=== PATIENT | female | born 1975 | race Caucasian/White ===

== ENCOUNTER 2016-07-18 14:11 | Emergency (ER) | payer BC ==
[~2016-07-18] VITALS: Ht 162.6 cm; Wt 86.2 kg
[~2016-07-18 14:11] MED LIST: ACHYD1T PO; AMIT50TA3 PO; BUTA-234 PO; CPR500T PO; DCS100C PO; ESTR1TAB24 PO; HYDR1TAB PO; IBP800T PO; NAPR550T PO; RIZA5TAB13 PO; TRAM-21 PO
[2016-07-18] MEDS ORDERED: SUMA100T3 (14:30)
[2016-07-18] MEDS ORDERED: NS IV 1000 ML 1,000 ML IV ONE (14:32)
[2016-07-18] MEDS ORDERED: KETOROLAC 30 MG/ML VIAL IVP STA (14:32)
[2016-07-18] MEDS ORDERED: ONDANSETRON 4 MG/2 ML (SDV) Z0FRAN IVP ONE (14:45)
[2016-07-18] MEDS ORDERED: diphenhydrAMINE 50 MG/ML INJ (BENADRYL) IVP ONE (14:45)
[2016-07-18] MEDS ORDERED: ORPHENADRINE 60 MG/2 ML (NORFLEX) AMP IV STA (15:10)
--- NOTE | 2016-07-18 15:29 | ED Headache ---
General Chief Complaint: Head/Cervical Problems Stated Complaint: MIGRANE Nursing Triage Note: AMB TO ED PMH OF HEADACHE TOOK PROMETHAZINE AND IMITREX TODAY. CON'T TO HAVE HEADACHE WITH ONSET OF VOMITING. Nursing Sepsis Screen: No Definite Risk Source: patient Exam Limitations: no limitations History of Present Illness Time seen by provider: 14:55 Initial Comments 41-year-old female patient presents to the emergency department complains of headache. Patient states she tried taking Imitrex and promethazine at home without improvement. Patient has a history of migraines and states this feels exactly like usual migraines. Does complain of photophobia and sound sensitivity. Patient states she was working in the garden yesterday and now has neck pain. Pain radiates up the neck and scalp. Timing/Duration: 4-6 hours Severity/Quality: throbbing Location: frontal Prior Headaches/Recent Trauma: occasional headaches Modifying Factors: worse with exposure to light, worse with other (exposure to sound) Allergies and Home Medications Allergies Coded Allergies: phenazopyridine (Verified Adverse Reaction, Unknown, headache and nausea, 07/18/16) Uncoded Allergies: STEVEN ALVARADO GIVES MIGRAINES (Allergy, Unknown, 06/04/09) Home Medications Amitriptyline Hcl 50 Mg Tablet, 1 EACH PO HS, (Reported) Estradiol 1 Mg Tablet, 1 MG PO DAILY, #90 Ref 3 (Reported) Ondansetron 8 Mg Tab.rapdis, 8 MG PO Q6H PRN for NAUSEA/VOMITING-1ST LINE, #10 Ref 0 Prescribed by: JACKY MARTINI on 07/18/16 1533 Rizatriptan Benzoate 5 Mg Tablet, 0 PO UD, (Reported) 1 TAB AT ONSET OF HEADACHE; repeat after 2 hours if significant relief is not attained; maximum: 30 mg in a 24-hour period Sumatriptan Succinate 100 Mg Tablet, #9 (Reported) Constitutional: No chills, No diaphoresis, No dizziness, No fever, No malaise, No weakness Eyes: Denies Blurred Vision, Photophobia, Denies Vision Changes Ears, Nose, Mouth, Throat: no symptoms reported Respiratory: no symptoms reported Cardiovascular: no symptoms reported Gastrointestinal: No abdominal pain, No diarrhea, loss of appetite, nausea, vomiting Genitourinary: no symptoms reported Musculoskeletal: see HPI, neck pain Skin: no symptoms reported Psychiatric/Neurological: See HPI, Headache, Denies Numbness, Denies Paresthesia, Denies Seizure, Denies Tingling, Denies Weakness All Other Systems Reviewed Negative Unless Noted: Yes (Negative excepted noted.) Past Zsvtfby-Umfngq-Joicsk Hx Patient Social History Alcohol Use: Denies Use Recreational Drug Use: No Smoking Status: Never a Smoker Recent Foreign Travel: No Contact w/Someone Who Travel: No Recent Infectious Disease Expo: No Recent Hopitalizations: Yes Immunizations Up To Date Date of Influenza Vaccine: May 03, 2012 Surgeries HX Surgeries: Yes Surgeries: Hysterectomy Respiratory Hx Respiratory Disorders: No Cardiovascular Hx Cardiac Disorders: No Neurological Hx Neurological Disorders: Yes Neurological Disorders: Headaches /Migraines Reproductive System Hx Reproductive Disorders: Yes (ENDOMETRIOSIS?) Sexually 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 Disease: 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 Genitourinary Hx Genitourinary Disorders: No Gastrointestinal Hx Gastrointestinal Disorders: No Musculoskeletal Hx Musculoskeletal Disorders: No Endocrine Hx Endocrine Disorders: No HEENT HX ENT Disorders: No Psychosocial Hx Psychiatric Problems: No Blood Transfusions Hx Blood Disorders: Yes Reviewed Nursing Assessment Reviewed/Agree w Nursing PMH: Yes Family Medical History Significant Family History: No Pertinent Family Hx Physical Exam Vital Signs Vital Sign - Last 12Hours 07/18/16 14:15 Temp 97.4 Pulse 81 Resp 18 B/P (MAP) 140/102 Pulse Ox 98 O2 Delivery Room Air Capillary Refill : Less Than 3 Seconds General Appearance: WD/WN, no apparent distress HEENT: PERRL/EOMI, normal ENT inspection, TMs normal, pharynx normal, photophobia Neck: full range of motion, supple, normal inspection, tender lateral (base of the skull) Cardiovascular: normal peripheral pulses, regular rate, rhythm, no edema, no murmur Respiratory: lungs clear, normal breath sounds, no respiratory distress Gastrointestinal: normal bowel sounds, non tender, soft, No distended Back: normal inspection Extremities: normal inspection, no pedal edema, normal capillary refill Psychiatric: alert, oriented x 3 Crainal Nerves: normal hearing, normal speech, PERRL Coordination/Gait: normal finger to nose, normal gait, negative Romberg's sign Motor/Sensory: no motor deficit, no sensory deficit, no pronator drift Skin: normal color, warm/dry Progress/Results/Core Measures Results/Orders My Orders Orders - JACKY MARTINI Saline Lock/Iv-Start (4/8/17 14:32) Ns Iv 1000 Ml (Sodium Chloride 0.9%) (07/18/16 14:32) Ondansetron Injection (Zofran Injectio (07/18/16 14:45) Ketorolac Injection (Toradol Injection) (07/18/16 14:32) Diphenhydramine Injection (Benadryl Inje (07/18/16 14:45) Orphenadrine Injection (Norflex Injectio (07/18/16 15:10) Medications Given in ED Vital Signs/I&O Vital Sign - Last 12Hours 07/18/16 07/18/16 14:15 16:09 Temp 97.4 97.8 Pulse 81 78 Resp 18 18 B/P (MAP) 140/102 Pulse Ox 98 98 O2 Delivery Room Air Intake and Output 07/19/16 00:00 Intake Total 1000 ml Balance 1000 ml Blood Pressure Mean: 115 Departure Communication Progress Notes Patient reports on his complete resolution of symptoms with medications and fluids given in the emergency department. Plan for discharge to home. Patient instructed to continue her usual migraine medications if needed and to follow- up with her primary care physician for recheck. Impression Impression: Primary Impression: Migraine Disposition: HOME, SELF-CARE Condition: Improved Departure-Patient Inst. Decision time for Depature: 15:30 Referrals: DELON SIMON MD (PCP/Family) Primary Care Physician Patient Instructions: Migraine Headache (DC) Add. Discharge Instructions: All discharge instructions reviewed with patient and/or family. Voiced understanding. Continue usual home medications. Tylenol extra strength over- the-counter as directed for pain. Ibuprofen 800 mg by mouth every 8 hours as needed for pain. Drink plenty of fluids. Avoid bright lights, loud noises, and strenuous activities until symptoms improve. Follow-up with your family practitioner if no improvement in symptoms. Return to the emergency department for worsened headache, dizziness, changes in vision, changes in behavior, vomiting, decreased urination, or any other concerns. Scripts Ondansetron (Ondansetron Odt) 8 Mg Tab.rapdis 8 MG PO Q6H Y for NAUSEA/VOMITING-1ST LINE, #10 TAB 0 Refills Prov: JACKY MARTINI 07/18/16 JACKY MARTINI Jul 18, 2016 15:29
[2016-07-18] MEDS ORDERED: ONDA8TAB13 PO (15:33)
[2016-07-18 16:09] VITALS: BP 151/102
--- OUTSIDE RECORDS SUMMARY | 2016-08-23 04:52 | XMS REPORT | Continuity of Care Document ---
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 N/A 10/05/2008 Yes No Known Drug Allergies [id number] Drug Allergy Unknown N/ A 06/04/2009 Yes STEVEN BCP GIVES MIGRAINES STEVEN BCP GIVES MIGRAINES Unknown N/A 06/04/2009 Yes MUSCLE RELAXERS MUSCLE RELAXERS Mild MAKES HEADACHE 07/18/2016 Yes phenazopyridine [id number] Drug Allergy Unknown headache and na 07/18/2016 Medications Problems Date Dx Coded Attending Type Code Diagnosis Diagnosed By 06/19/2013 JESSA SHELDON, VERO Caro Ot 346.90 MIGRAINE UNSPECIFIED W/O INTRACT MGRN W/ 06/19/2013 VERO GERMAIN MD Ot 784.0 HEADACHE 01/03/2015 MERCY ABDI MD Ot V76.12 01/16/2015 MERCY ABDI MD Ot V76.12 08/30/2015 DELON SIMON MD Ot K42.9 UMBILICAL HERNIA WITHOUT OBSTRUCTION OR 08/30/2015 DELON SIMON MD Ot N39.41 URGE INCONTINENCE 08/30/2015 DELON SIMON MD Ot R10.32 LEFT LOWER QUADRANT PAIN 08/30/2015 DELON SIMON MD Ot R31.9 HEMATURIA, UNSPECIFIED 09/02/2015 MERCY ABDI MD Ot V76.12 OTH SCREEN MAMMO-MALIGN NEOPLASM OF ERINN 09/02/2015 MERCY ABDI MD Ot V76.12 OTH SCREEN MAMMO-MALIGN NEOPLASM OF ERINN 09/02/2015 DELON SIMON MD Ot K42.9 UMBILICAL HERNIA WITHOUT OBSTRUCTION OR 09/02/2015 DELON SIMON MD Ot N39.41 URGE INCONTINENCE 09/02/2015 DELON SIMON MD Ot R10.32 LEFT LOWER QUADRANT PAIN 09/02/2015 DELON SIMON MD Ot R31.9 HEMATURIA, UNSPECIFIED 09/16/2015 DELON SIMON MD Ot K42.9 UMBILICAL HERNIA WITHOUT OBSTRUCTION OR 09/16/2015 DELON SIMON MD Ot N39.41 URGE INCONTINENCE 09/16/2015 DELON SIMON MD Ot R10.32 LEFT LOWER QUADRANT PAIN 09/16/2015 DELON SIMON MD Ot R31.9 HEMATURIA, UNSPECIFIED 07/18/2016 JACKY ACEVES Ot G43.909 MIGRAINE, UNSP, NOT INTRACTABLE, WITHOUT 07/18/2016 JACKY ACEVES Ot M54.2 CERVICALGIA 07/18/2016 JACKY ACEVES Ot Z79.899 OTHER LONGTERM (CURRENT) DRUG THERAPY 07/18/2016 MERCY ABDI MD Ot V76.12 OTH SCREEN MAMMO-MALIGN NEOPLASM OF ERINN 07/18/2016 MERCY ABDI MD Ot V76.12 OTH SCREEN MAMMO-MALIGN NEOPLASM OF ERINN 07/18/2016 DELON SIMON MD, Ot K42.9 UMBILICAL HERNIA WITHOUT OBSTRUCTION OR 07/18/2016 DELON SIMON MD Ot N39.41 URGE INCONTINENCE 07/18/2016 DELON SIMON MD Ot R10.32 LEFT LOWER QUADRANT PAIN 07/18/2016 DELON SIMON MD Ot R31.9 HEMATURIA, UNSPECIFIED Procedures Results Encounters ACCT No. Visit Date/Time Discharge Status Pt. Type Provider Facility Loc./Unit Complaint [id number] 07/18/2016 14:12:00 2016 16:09:00 DIS Emergency JACKY ACEVES [facility] ER MIGRAINE [id number] 01/03/2015 12:28:00 2014 23:59:59 CLS Outpatient MERCY ABDI MD [facility] RAD SCREENING [id number] 06/19/2013 15:48:00 2013 16:51:00 DIS Emergency JESSA SHELDON, VERO Martinez [facility] ER HEADACHE [id number] 06/08/2013 14:51:00 2013 23:59:59 CLS Outpatient TRINIDAD SHELDON, MERCY Hyman [facility] RAD SCREENING [id number] 08/29/2015 11:19:00 ACT Outpatient AURORA SHELDON, DELON Welch [facility] RAD HEMATURIA,L FLANK PAIN,URINARY URGENCY
== END 2016-07-18 16:09 | disposition home or self-care (01) ==
LOC: EDUNIT# 14:11 → ER 14:12
DX: G43.909 Migraine, unspecified, not intractable, without status migrainosus (principal); M54.2 Cervicalgia; Z79.899 Other long term (current) drug therapy
CPT/HCPCS: 96361; 96374; 96375

== ENCOUNTER 2018-04-23 17:05 | Emergency (ER) | payer BC, MEDICAID ==
[~2018-04-23] VITALS: Ht 160 cm; Wt 90.7 kg
[~2018-04-23 17:05] MED LIST changes: +ONDA8TAB13 PO; +SUMA100T3
--- NOTE | 2018-04-23 17:25 | ED Headache ---
General Chief Complaint: Head/Cervical Problems Stated Complaint: MIGRAINE,VOMIT Source: patient Exam Limitations: no limitations History of Present Illness Date Seen by Provider: Apr 23, 2018 Time Seen by Provider: 17:22 Initial Comments 43-year-old female who presents to the emergency room with complaints of migraine, nausea, and vomiting started around 0300 this morning. Reports getting migraines frequently but this migraine will not go away with home remedies and ddkb-ntp-krofqvz medications. Severity/Quality: constant, pressure Location: global Prior Headaches/Recent Trauma: frequent headaches Associated Symptoms: nausea/vomiting Allergies and Home Medications Allergies Coded Allergies: phenazopyridine (Verified Adverse Reaction, Unknown, headache and nausea, 07/18/16) Uncoded Allergies: STEVEN BCP GIVES MIGRAINES (Allergy, Unknown, 06/04/09) Home Medications Amitriptyline Hcl 50 Mg Tablet, 1 EACH PO HS, (Reported) Estradiol 1 Mg Tablet, 1 MG PO DAILY, (Reported) Ondansetron 8 Mg Tab.rapdis, 8 MG PO Q6H PRN for NAUSEA/VOMITING-1ST LINE Prescribed by: JACKY MARTINI on 07/18/16 1533 Rizatriptan Benzoate 5 Mg Tablet, 0 PO UD, (Reported) 1 TAB AT ONSET OF HEADACHE; repeat after 2 hours if significant relief is not attained; maximum: 30 mg in a 24-hour period Patient Home Medication List Home Medication List Reviewed: Yes Review of Systems Review of Systems Constitutional: no symptoms reported, see HPI Gastrointestinal: see HPI, nausea, vomiting Psychiatric/Neurological: See HPI, Headache All Other Systems Reviewed Negative Unless Noted: Yes Past Erdqxen-Lxvyhs-Lnioqw Hx Past Med/Social Hx: Reviewed Nursing Past Med/Soc Hx Patient Social History Recent Foreign Travel: No Contact w/Someone Who Travel: No Recent Hopitalizations: Yes Immunizations Up To Date Date of Influenza Vaccine: May 03, 2012 Past Medical History Hysterectomy Headaches /Migraines Reproductive Disorders: Yes (ENDOMETRIOSIS?) [employer]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 oz. 86.034713fs; BMI Method:Stated General Appearance: WD/WN, no apparent distress HEENT: PERRL/EOMI, photophobia Cardiovascular: normal peripheral pulses, regular rate, rhythm, no edema, no gallop, no JVD, no murmur Respiratory: chest non-tender, lungs clear, normal breath sounds, no respiratory distress, no accessory muscle use Gastrointestinal: normal bowel sounds, non tender, soft, no organomegaly, no pulsatile mass Extremities: normal capillary refill Psychiatric: alert, oriented x 3 Crainal Nerves: normal hearing, normal speech, PERRL Coordination/Gait: normal finger to nose, normal gait Motor/Sensory: no motor deficit, no sensory deficit Skin: normal color, warm/dry Progress/Results/Core Measures Results/Orders My Orders Orders - CLAU SEGOVIA Ketorolac Injection (Toradol Injection) (04/23/18 17:30) Prochlorperazine Injection (Compazine In (04/23/18 17:30) Diphenhydramine Injection (Benadryl Inje (04/23/18 17:30) Medications Given in ED Current Medications Medications Dose Ordered Sig/[place] Route Start Time Stop Time Status Last Admin Dose Admin Diphenhydramine HCl 50 mg ONCE ONCE IM 04/23/18 17:30 04/23/18 17:31 DC 04/23/18 17:32 50 MG Ketorolac Tromethamine 60 mg ONCE ONCE IM 04/23/18 17:30 04/23/18 17:31 DC 04/23/18 17:32 60 MG Prochlorperazine Edisylate 10 mg ONCE ONCE IM 04/23/18 17:30 04/23/18 17:31 DC 04/23/18 17:33 10 MG Vital Signs/I&O 04/23/18 17:17 Temp 97.2 Pulse 87 Resp 16 B/P (MAP) 153/112 (126) Pulse Ox 96 Progress Progress Note : Time: 17:57 Progress Note Patients tendons have resolved this time. She agrees with plan of care, plans for discharge, return precautions were given. Departure Impression Primary Impression: Migraine Disposition: 01 HOME, SELF-CARE Condition: Stable/Unchanged Departure-Patient Inst. Decision time for Depature: 17:57 Referrals: DELON SIMON MD (PCP/Family) Primary Care Physician Patient Instructions: Migraine Headache (DC) Add. Discharge Instructions: You may continue to use Tylenol, ibuprofen, and Benadryl as directed by the bottle for symptom relief. Follow-up with your primary care provider within 1 week for recheck. Return back to the emergency room for any worsening symptoms or concerns as needed. All discharge instructions reviewed with patient and/or family. Voiced understanding. CLAU SEGOVIA Apr 23, 2018 17:25
[2018-04-23] MEDS ORDERED: KETOROLAC 60 MG/2 ML VIAL IM ONE (17:30)
[2018-04-23] MEDS ORDERED: PROCHLORPERAZINE 10 MG/2ML INJ (COMPAZINE) IM ONE (17:30)
[2018-04-23] MEDS ORDERED: diphenhydrAMINE 50 MG/ML INJ (BENADRYL) IM ONE (17:30)
[2018-04-23 18:04] VITALS: BP 142/92
--- OUTSIDE RECORDS SUMMARY | 2018-04-23 18:17 | XMS REPORT | Continuity of Care Document ---
Author Author [facility] Organization [facility] Address Unknown Phone Unavailable Allergies Active Description Code Type Severity Reaction Onset Reported/Identified Relationship to Patient Clinical Status Yes MUSCLE RELAXERS MUSCLE RELAXERS Mild N/A 10/05/2008 Yes No Known Drug Allergies [id number] Drug Allergy Unknown N/A 06/04/2009 Yes STEVEN BCP GIVES MIGRAINES STEVEN BCP GIVES MIGRAINES Unknown N/A 06/04/2009 Yes MUSCLE RELAXERS MUSCLE RELAXERS Mild MAKES HEADACHE 07/18/2016 Yes phenazopyridine [id number] Drug Allergy Unknown headache and na 07/18/2016 Medications There is no data. Problems Date Dx Coded Attending Type Code Diagnosis Diagnosed By 06/19/2013 JESSA SHELDON, VERO Caro Ot 346.90 MIGRAINE UNSPECIFIED W/O INTRACT MGRN W/ 06/19/2013 VERO GERMAIN MD Ot 784.0 HEADACHE 01/03/2015 MERCY ABDI MD, Ot V76.12 01/16/2015 MERCY ABDI MD, Ot V76.12 08/30/2015 DELON SIMON MD Ot [...] CERVICALGIA 07/18/2016 JACKY ACEVES Ot Z79.899 OTHER USP (CURRENT) DRUG THERAPY 07/18/2016 MERCY ABDI MD Ot V76.12 OTH SCREEN MAMMO-MALIGN NEOPLASM OF ERINN 07/18/2016 MERCY ABDI MD Ot V76.12 OTH SCREEN MAMMO-MALIGN NEOPLASM OF ERINN 07/18/2016 DELON SIMON MD, Ot K42.9 UMBILICAL HERNIA WITHOUT OBSTRUCTION OR 07/18/2016 DELON SIMON MD Ot N39.41 URGE INCONTINENCE 07/18/2016 DELON SIMON MD, Ot R10.32 LEFT LOWER QUADRANT PAIN 07/18/2016 DELON SIMON MD, Ot R31.9 HEMATURIA, UNSPECIFIED Procedures There is no data. Results There is no data. Encounters ACCT No. Visit Date/Time Discharge Status Pt. Type Provider Facility Loc./Unit Complaint [id number] 07/18/2016 14:12:00 07/18/2016 16:09:00 DIS Emergency JACKY ACEVES [facility] ER MIGRAINE [id number] 08/29/2015 11:19:00 08/29/2015 23:59:59 CLS Outpatient DELON SIMON MD [facility] RAD HEMATURIA,L FLANK PAIN, URINARY URGENCY [id number] 01/03/2015 12:28:00 01/03/2015 23:59:59 CLS Outpatient MERCY ABDI MD [facility] RAD SCREENING [id number] 06/19/2013 15:48:00 06/19/2013 16:51:00 DIS Emergency JESSA SHELDON, VERO Caro [facility] ER HEADACHE [id number] 06/08/2013 14:51:00 06/08/2013 23:59:59 CLS Outpatient MERCY ABDI MD [facility] RAD SCREENING
== END 2018-04-23 18:04 | disposition home or self-care (01) ==
LOC: EDUNIT# 17:05 → ER 17:06
DX: G43.909 Migraine, unspecified, not intractable, without status migrainosus (principal); Z88.8 Allergy status to other drugs, medicaments and biological substances; Z90.710 Acquired absence of both cervix and uterus; Z87.448 Personal history of other diseases of urinary system
CPT/HCPCS: 99284

== ENCOUNTER 2019-03-15 11:43 | Emergency (ER) | payer MEDICAID ==
[~2019-03-15] VITALS: Ht 167 cm; Wt 90.0 kg
--- NOTE | 2019-03-15 12:22 | ED Headache ---
General Chief Complaint: Head/Cervical Problems Stated Complaint: MIGRAINE Nursing Triage Note: AMB TO ROOM C/O HEDACHE SINCE LAST NIGHT REPORT THAT HER BROTHER WAS FOUND IN HIS APPARTMENT THAT SHE HAD TO GO AND CLEAN IT OUT THINKS THEIR MAY OF BEEN MOLD THAT SET HER MIRGAIN OFF. Nursing Sepsis Screen: No Definite Risk Source: patient Exam Limitations: no limitations History of Present Illness Date Seen by Provider: Mar 15, 2019 Time Seen by Provider: 12:20 Initial Comments to ER with reports of a headache in the front and back since yesterday associated with photophobia and nausea vomiting. She has a history of migraines and this is similar. She took an gjuv-jmr-bntntov equate migraine pill but vomited shortly thereafter this morning. She states that her brother recently and she's been cleaning out his apartment, thought she saw black mold in there and is concerned that may be contributing to this. No fever no chills no trauma. Timing/Duration: 24 hours Severity/Quality: moderate Location: frontal, occipital Prior Headaches/Recent Trauma: occasional headaches Associated Symptoms: No confusion, No fever/chills; nausea/vomiting; No stiff neck, No vision changes Allergies and Home Medications Allergies Coded Allergies: phenazopyridine (Verified Adverse Reaction, Unknown, headache and nausea, 07/18/16) Uncoded Allergies: STEVEN BCP GIVES MIGRAINES (Allergy, Unknown, 06/04/09) MUSCLE REXLANT (Adverse Reaction, Unknown, GIVES HER A HEADACEH, 03/15/19) Home Medications Amitriptyline Hcl 50 Mg Tablet, 1 EACH PO HS, (Reported) Estradiol 1 Mg Tablet, 1 MG PO DAILY, (Reported) Ondansetron 8 Mg Tab.rapdis, 8 MG PO Q6H PRN for NAUSEA/VOMITING-1ST LINE Prescribed by: JACKY MARTINI on 07/18/16 1533 Rizatriptan Benzoate 5 Mg Tablet, 0 PO UD, (Reported) 1 TAB AT ONSET OF HEADACHE; repeat after 2 hours if significant relief is not attained; maximum: 30 mg in a 24-hour period Patient Home Medication List Home Medication List Reviewed: Yes Review of Systems Review of Systems Constitutional: see HPI Eyes: No Symptoms Reported Ears, Nose, Mouth, Throat: no symptoms reported Respiratory: no symptoms reported Cardiovascular: no symptoms reported Genitourinary: no symptoms reported Musculoskeletal: see HPI Skin: no symptoms reported Psychiatric/Neurological: No Symptoms Reported Past Wbcfcwc-Qvbeol-Jkfusz Hx Patient Social History Alcohol Use: Denies Use Recreational Drug Use: No Smoking Status: Never a Smoker Recent Foreign Travel: No Contact w/Someone Who Travel: No Recent Infectious Disease Expo: No Recent Hopitalizations: Yes Immunizations Up To Date PED Vaccines UTD: No Date of Influenza Vaccine: May 03, 2012 Past Medical History Surgeries: Yes () Hysterectomy Respiratory: No Cardiac: No Neurological: Yes Headaches /Migraines Reproductive Disorders: Yes (ENDOMETRIOSIS?) Female Reproductive Disorders: Menstrual Problems 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 oz. 90.720603ig; 32.00 BMI Method:Stated General Appearance: WD/WN, no apparent distress HEENT: PERRL/EOMI, normal ENT inspection, TMs normal Neck: non-tender, full range of motion Cardiovascular: regular rate, rhythm, no murmur Respiratory: chest non-tender, lungs clear, no respiratory distress, no accessory muscle use Gastrointestinal: normal bowel sounds, non tender, soft Extremities: normal range of motion, non-tender Psychiatric: alert, oriented x 3 Crainal Nerves: normal hearing, normal speech, PERRL Motor/Sensory: no motor deficit, no sensory deficit Skin: normal color, warm/dry Progress/Results/Core Measures Results/Orders My Orders Orders - SANFORD JOSUE APRN Ketorolac Injection (Toradol Injection) (03/15/19 12:30) Diphenhydramine Injection (Benadryl Inje (03/15/19 12:30) Prochlorperazine Injection (Compazine In (03/15/19 12:30) Vital Signs/I&O 03/15/19 11:47 Temp 36.3 Pulse 86 Resp 18 B/P (MAP) 149/111 (124) Pulse Ox 97 O2 Delivery Room Air Blood Pressure Mean: 124 POS Departure Impression Primary Impression: Headache Disposition: 01 HOME, SELF-CARE Condition: Stable Departure-Patient Inst. Decision time for Depature: 12:21 Referrals: DELON SIMON MD (PCP/Family) Primary Care Physician Patient Instructions: Headache, Adult (DC) SANFORD JOSUE APRN Mar 15, 2019 12:22 POS
[2019-03-15] MEDS ORDERED: PROCHLORPERAZINE 10 MG/2ML INJ (COMPAZINE) IM ONE (12:30)
[2019-03-15] MEDS ORDERED: KETOROLAC 60 MG/2 ML VIAL IM ONE (12:30)
[2019-03-15] MEDS ORDERED: diphenhydrAMINE 50 MG/ML INJ (BENADRYL) IM ONE (12:30)
[2019-03-15 13:38] VITALS: BP 152/100
== END 2019-03-15 13:38 | disposition home or self-care (01) ==
LOC: EDUNIT# 11:43 → ER 11:43
DX: R51 Headache (principal); Z86.69 Personal history of other diseases of the nervous system and sense organs; Z88.8 Allergy status to other drugs, medicaments and biological substances; Z79.52 Long term (current) use of systemic steroids; Z90.710 Acquired absence of both cervix and uterus
CPT/HCPCS: 96372; 99284

== ENCOUNTER 2019-05-29 22:22 | Emergency (ER) | payer SELFPAY ==
[~2019-05-29] VITALS: Ht 162.5 cm; Wt 91.4 kg
[2019-05-29 23:07] LABS: BILIRUBIN,URINE NEGATIVE (NEGATIVE); COLOR,URINE DARK YELLOW; GLUCOSE, URINE (UA) NEGATIVE (NEGATIVE); KETONES,URINE NEGATIVE (NEGATIVE); LEUKOCYTE ESTERASE ,URINE 2+ (NEGATIVE); NITRITE,URINE NEGATIVE (NEGATIVE); PROTEIN,URINE TRACE (NEGATIVE)
[2019-05-29 23:12] LABS: CLARITY,URINE SL CLOUDY
[2019-05-29 23:13] LABS: BACTERIA,URINE MODERATE /HPF; WBC,URINE 25-50 /HPF
--- NOTE | 2019-05-29 23:16 | ED GU-Female ---
General Chief Complaint: - Urinary Stated Complaint: BURNING WITH URINATION,BACK HURTING Source: patient Exam Limitations: no limitations History of Present Illness Date Seen by Provider: May 29, 2019 Time Seen by Provider: 23:05 Initial Comments Here with burning and frequency of urination. Denies fever or chills. Feels some pain in the low back. Tried whma-jsn-nhoskbe cranberry pills as well as increased fluid and that has not helped. Denies nausea or vomiting. Timing/Duration: getting worse, other (2-3 days) Severity/Quality: moderate, burning Location: suprapubic, urethral Radiation: none Activities at Onset: none Modifying Factors: Worsens With Urinating Associated Symptoms: dysuria; No fever/chills; urinary frequency Allergies and Home Medications Allergies Coded Allergies: phenazopyridine (Verified Adverse Reaction, Unknown, headache and nausea, 07/18/16) Uncoded Allergies: STEVEN BCP GIVES MIGRAINES (Allergy, Unknown, 06/04/09) MUSCLE REXLANT (Adverse Reaction, Unknown, GIVES HER A HEADACEH, 03/15/19) Home Medications Amitriptyline Hcl 50 Mg Tablet, 1 EACH PO HS, (Reported) Estradiol 1 Mg Tablet, 1 MG PO DAILY, (Reported) Ondansetron 8 Mg Tab.rapdis, 8 MG PO Q6H PRN for NAUSEA/VOMITING-1ST LINE Prescribed by: JACKY MARTINI on 07/18/16 1533 Rizatriptan Benzoate 5 Mg Tablet, 0 PO UD, (Reported) 1 TAB AT ONSET OF HEADACHE; repeat after 2 hours if significant relief is not attained; maximum: 30 mg in a 24-hour period Patient Home Medication List Home Medication List Reviewed: Yes Review of Systems Review of Systems Constitutional: see HPI Respiratory: no symptoms reported Cardiovascular: no symptoms reported Gastrointestinal: see HPI Genitourinary: burning; denies discharge; dysuria, frequency Musculoskeletal: see HPI; No muscle pain, No muscle weakness Past Jkqvize-Bvqmcs-Qdhnuu Hx Past Med/Social Hx: Reviewed Nursing Past Med/Soc Hx Patient Social History Alcohol Use: Denies Use Recreational Drug Use: No Smoking Status: Never a Smoker Recent Foreign Travel: No Contact w/Someone Who Travel: No Recent Hopitalizations: Yes Immunizations Up To Date PED Vaccines UTD: No Date of Influenza Vaccine: May 03, 2012 Past Medical History Surgeries: Yes () Hysterectomy Respiratory: No Cardiac: No Neurological: Yes Headaches /Migraines Reproductive Disorders: Yes (ENDOMETRIOSIS?) Female Reproductive Disorders: Menstrual Problems [employer] History: Hysterectomy Sexually Transmitted Disease: No Genitourinary: No Gastrointestinal: No Musculoskeletal: No Endocrine: No HEENT: No Cancer: No Psychosocial: No Blood Disorders: Yes Family Medical History Hypertension Physical Exam Vital Signs Vital Signs - First Documented 05/29/19 22:52 Temp 36.6 Pulse 96 Resp 18 B/P (MAP) 160/91 (114) O2 Delivery Room Air Capillary Refill : Height, Weight, BMI Height: 5'3.00" Weight: 200lbs. oz. [id number]; 32.00 BMI Method:Stated General Appearance: WD/WN, no apparent distress Cardiovascular: regular rate, rhythm, no murmur Respiratory: lungs clear, normal breath sounds Gastrointestinal: non tender, soft Extremities: non-tender, normal inspection Neurologic/Psychiatric: alert, oriented x 3 Progress/Results/Core Measures Suspected Sepsis SIRS Temperature: Pulse: Respiratory Rate: Blood Pressure / Mean: Results/Orders Lab Results Laboratory Tests Test 05/29/19 22:53 Range/Units Urine Color DARK YELLOW Urine Clarity SL CLOUDY Urine pH 6.0 5-9 Urine Specific [place] 1.010 L 1.016-1.022 Urine Protein TRACE H NEGATIVE Urine Glucose (UA) NEGATIVE NEGATIVE Urine Ketones NEGATIVE NEGATIVE Urine Nitrite NEGATIVE NEGATIVE Urine Bilirubin NEGATIVE NEGATIVE Urine Urobilinogen 0.2 < = 1.0 MG/DL Urine Leukocyte Esterase 2+ H NEGATIVE Urine RBC (Auto) 3+ H NEGATIVE Urine RBC 5-10 H /HPF Urine WBC 25-50 H /HPF Urine Squamous Epithelial Cells 2-5 /HPF Urine Crystals NONE /LPF Urine Bacteria MODERATE H /HPF Urine Casts NONE /LPF Urine Mucus NEGATIVE /LPF Urine Culture Indicated YES My Orders Orders - MARI CARRASCO MD Ua Culture If Indicated (05/29/19 22:28) Urine Culture (05/29/19 22:53) Cephalexin Capsule (Keflex Capsule) (05/29/19 23:18) Vital Signs/I&O 05/29/19 22:52 Temp 36.6 Pulse 96 Resp 18 B/P (MAP) 160/91 (114) O2 Delivery Room Air Capillary Refill : Progress Note : Progress Note Seen and evaluated. UA ordered. This is positive. Cephalexin 500 mg by mouth. Discharged home with return precautions. Patient verbalize understanding instructions and agreement with plan. Toradol 60 mg IM given for pain. Departure Impression Primary Impression: Urinary tract infection Qualified Codes: N30.01 - Acute cystitis with hematuria Disposition: HOME, SELF-CARE Condition: Stable Departure-Patient Inst. Decision time for Depature: 23:28 Referrals: DELON SIMON MD (PCP/Family) Primary Care Physician Patient Instructions: Urinary Tract Infection, Adult (DC) Add. Discharge Instructions: All discharge instructions reviewed with patient and/or family. Voiced unders tanding. Drink plenty of fluids. You may take ibuprofen 400 mg every 6-8 hours as needed for pain. Take medications as directed. Return for worse pain, fever, vomiting, chills, weakness or other concerns as needed. Follow-up with your doctor for recheck in a few days. Discuss with her doctor regarding her blood pressure as well. You should take and record your blood pressure daily in the morning and let your doctor know the results of that log. Scripts Cephalexin (Cephalexin) 500 Mg Tablet 500 MG PO BID, #10 TAB 0 Refills Prov: MARI CARRASCO MD 05/29/19 MARI CARRASCO MD May 29, 2019 23:16
[2019-05-29] MEDS ORDERED: CEPHALEXIN 250 MG (KEFLEX) CAP PO STA (23:18)
[2019-05-29] MEDS ORDERED: KETOROLAC 60 MG/2 ML VIAL IM STA (23:28)
[2019-05-29] MEDS ORDERED: CEPH500T PO (23:33)
[2019-05-29 23:43] VITALS: BP 158/98
== END 2019-05-29 23:58 | disposition home or self-care (01) ==
LOC: EDUNIT# 22:22 → ER 22:23
DX: N39.0 Urinary tract infection, site not specified (principal); G43.909 Migraine, unspecified, not intractable, without status migrainosus; Z88.8 Allergy status to other drugs, medicaments and biological substances; Z79.52 Long term (current) use of systemic steroids; Z82.49 Family history of ischemic heart disease and other diseases of the circulatory system
CPT/HCPCS: 81000; 87077; 87088; 87186; 96372; 99284

== ENCOUNTER → 2021-10-17 | Outpatient (CLI) | payer OTHER ==
[~2021-10-17] MED LIST changes: +CEPH500T PO
--- NOTE | 2021-10-17 11:21 | Diagnostic Imaging Report ---
INDICATION: Routine screening. Comparison is made with prior mammograms of 01/03/2015 and 06/08/2013. 2-D and 3-D bilateral screening mammography was performed with CAD. Both breasts are heterogeneously dense, limiting the sensitivity of mammography. The parenchymal pattern is stable. No mass or malignant-appearing microcalcifications are seen. Axillae are unremarkable. There are benign calcifications noted. IMPRESSION: No mammographic features suspicious for malignancy are identified. ACR BI-RADS Category 2: Benign findings. Result letter will be mailed to the patient. Note: At least 10% of breast cancer is not imaged by mammography. BI-RADS Category 2 Dictated by: Dictated on workstation # [id number]
== END ==
LOC: RAD 09:03
PROVIDERS: ATTEND Obstetrics & Gynecology
DX: Z12.31 Encounter for screening mammogram for malignant neoplasm of breast (principal)
CPT/HCPCS: 77063; 77067

== ENCOUNTER 2021-10-30 14:42 | Emergency (ER) | payer OTHER ==
[~2021-10-30] VITALS: Ht 160 cm; Wt 79.8 kg
--- NOTE | 2021-10-30 15:47 | ED General ---
General Chief Complaint: General Problems/Pain Stated Complaint: LOW K Nursing Triage Note: This patient arrives via private vehicle accompanied by her and son; she ambulates to room 3 with RN while family sits in the waiting room. This patient states that she has come to the ED due to her "thinking her potassium is low" which the patient has a history of. While RN is assessing patient, patient seems confused as she cannot follow a lot of the asked questions. She states that she is in no pain. Source of Information: Patient Exam Limitations: No Limitations History of Present Illness Date Seen by Provider: Oct 30, 2021 Time Seen by Provider: 14:46 Initial Comments 46-year-old female coming in due to concerns for low potassium. She is discussing multiple things and goes off tangent multiple times. She states her told her to come here, but is not here currently. She is otherwise denying any CP, SOB, abd pain, n/v/d, dysuria, rash, weakness, numbness, headache, or any other findings. She does take lasix, lisinopril, escitalopram, and estradiol. The patient does endorse some paranoia intermittently. She says that she has trouble sleeping. She says she has no thoughts to harm her self or harm anyone else. She says she does not want any psychiatric help at this time and she is still able to function. Allergies and Home Medications Allergies Coded Allergies: phenazopyridine (Verified Adverse Reaction, Unknown, headache and nausea, 07/18/16) Uncoded Allergies: STEVEN BCP GIVES MIGRAINES (Allergy, Unknown, 06/04/09) MUSCLE REXLANT (Adverse Reaction, Unknown, GIVES HER A HEADACEH, 03/15/19) Patient Home Medication List Home Medication List Reviewed: Yes Amitriptyline Hcl (Amitriptyline Hcl) 50 Mg Tablet, 1 EACH PO HS, (Reported) Entered as Reported by: JUAREZ WILKINS on 04/27/12 1341 Cephalexin (Cephalexin) 500 Mg Tablet, 500 MG PO BID Prescribed by: MARI CARRACSO on 05/29/19 2333 Estradiol (Estradiol) 1 Mg Tablet, 1 MG PO DAILY, (Reported) Entered as Reported by: JASSI PHELPS on 05/03/12 1118 Ondansetron (Ondansetron Odt) 8 Mg Tab.rapdis, 8 MG PO Q6H PRN for NAUS EA/VOMITING-1ST LINE Prescribed by: JACKY MARTINI on 07/18/16 1533 Rizatriptan Benzoate (Maxalt) 5 Mg Tablet, 0 PO UD, (Reported) Entered as Reported by: JUAREZ WILKINS on 04/27/12 1341 Sumatriptan Succinate (Sumatriptan Succinate) 100 Mg Tablet, (Reported) Entered as Reported by: CROW SCOTT on 07/18/16 1430 Review of Systems Review of Systems Constitutional: No fever EENTM: No blurred vision Respiratory: No cough Cardiovascular: No chest pain Gastrointestinal: No abdominal pain Genitourinary: no symptoms reported Musculoskeletal: no symptoms reported Skin: no symptoms reported Psychiatric/Neurological: No Symptoms Reported Hematologic/Lymphatic: No Symptoms Reported Immunological/Allergic: no symptoms reported All Other Systems Reviewed Negative Unless Noted: Yes Past Fkzfciq-Qsckad-Nuqctp Hx Patient Social History Tobacco Use?: Yes Smoking Status: Current Everyday Smoker Substance use?: Yes Substance type: Marijuana Substance frequency: Once in a while Alcohol Use?: No Immunizations Up To Date PED Vaccines UTD: No First/Initial COVID19 Vaccinat: Received; unknown date Second COVID19 Vaccination Fco: Received; unknown date Past Medical History Surgery/Hospitalization HX: Hysterectomy; unknown date Surgeries: Yes ( X2) Hysterectomy Respiratory: No Cardiac: No Neurological: Yes Headaches /Migraines Reproductive Disorders: Yes (ENDOMETRIOSIS?) Female Reproductive Disorders: Menstrual Problems 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 oz. 90.067410my; 31.00 BMI Method:Stated General Appearance: No Apparent Distress, WD/WN Eyes: Bilateral Eye Normal Inspection HEENT: PERRL/EOMI, Normal ENT Inspection, Pharynx Normal Neck: Full Range of Motion, Normal Inspection, Non Tender, Supple Respiratory: Chest Non Tender, Lungs Clear, Normal Breath Sounds, No Accessory Muscle Use, No Respiratory Distress Cardiovascular: Regular Rate, Rhythm, No Edema, Normal Peripheral Pulses Gastrointestinal: Normal Bowel Sounds, Non Tender, Soft; No Distended, No Guarding Back: Normal Inspection, No CVA Tenderness Extremity: Normal Capillary Refill, Normal Inspection, Normal Range of Motion, Non Tender, No Calf Tenderness, No Pedal Edema Neurologic/Psychiatric: Alert, No Motor/Sensory Deficits, Normal Mood/Affect Skin: Normal Color, Warm/Dry Lymphatic: No Adenopathy Progress/Results/Core Measures Suspected Sepsis SIRS Temperature: Pulse: 89 Respiratory Rate: 18 Laboratory Tests 10/30/21 15:36: White Blood Count 7.5 Blood Pressure 168 /97 Mean: 120 Laboratory Tests 10/30/21 15:36: Platelet Count 185 Results/Orders Lab Results Laboratory Tests Test 10/30/21 15:36 Range/Units White Blood Count 7.5 4.3-11.0 10^3/uL Red Blood Count 4.59 3.80-5.11 10^6/uL Hemoglobin 14.3 11.5-16.0 g/dL Hematocrit 41 35-52 % Mean Corpuscular Volume 89 80-99 fL Mean Corpuscular Hemoglobin 31 25-34 pg Mean Corpuscular Hemoglobin Concent 35 32-36 g/dL Red Cell Distribution Width 12.6 10.0-14.5 % Platelet Count 185 130-400 10^3/uL Mean Platelet Volume 10.4 9.0-12.2 fL Immature Granulocyte % (Auto) 0 % Neutrophils (%) (Auto) 53 42-75 % Lymphocytes (%) (Auto) 36 12-44 % Monocytes (%) (Auto) 8 0-12 % Eosinophils (%) (Auto) 2 0-10 % Basophils (%) (Auto) 0 0-10 % Neutrophils # (Auto) 4.0 1.8-7.8 X 10^3 Lymphocytes # (Auto) 2.7 1.0-4.0 X 10^3 Monocytes # (Auto) 0.6 0.0-1.0 X 10^3 Eosinophils # (Auto) 0.1 0.0-0.3 10^3/uL Basophils # (Auto) 0.0 0.0-0.1 10^3/uL Immature Granulocyte # (Auto) 0.0 0.0-0.1 10^3/uL Sodium Level 140 135-145 MMOL/L Potassium Level 3.8 3.6-5.0 MMOL/L Chloride Level 107 98-107 MMOL/L Calcium Level 9.5 8.5-10.1 MG/DL My Orders Orders - UDAY LANDRY MD Basic Metabolic Panel (10/30/21 15:03) Cbc With Automated Diff (10/30/21 15:03) Magnesium (10/30/21 15:03) Ed Iv/Invasive Line Start (10/30/21 15:03) Ekg Tracing (10/30/21 15:03) Vital Signs/I&O 10/30/21 15:03 Temp 36.9 Pulse 89 Resp 18 B/P (MAP) 168/97 (120) Pulse Ox 95 O2 Delivery Room Air Capillary Refill : Blood Pressure Mean: 120 Progress Note : Progress Note 46-year-old female with above history coming in due to concerns for low potassium. She does take hydrochlorothiazide and she threw her potassium supplement out. She is no longer taking it and has switched over to lisinopril, but her was worried her potassium could be low. Basic labs show potassium of 3.8. The patient also was endorsing some paranoia and difficulty sleeping. She is not endorsing any thoughts to harm her self or harm anyone else. I offered her psychiatric screening and the patient is saying she is functional right now and does not want that. Departure Impression Primary Impression: Visit for blood test Additional Impression: Paranoia Disposition: 01 HOME, SELF-CARE Condition: Stable Departure-Patient Inst. Decision time for Depature: 16:17 Referrals: NO,LOCAL PHYSICIAN (PCP/Family) Primary Care Physician Patient Instructions: Potassium Test Add. Discharge Instructions: Your potassium is normal today. I recommend calling your doctor to figure out if he wanted to take the lisinopril, the hydrochlorothiazide, or both. If you are taking hydrochlorothiazide which is the diuretic, he may want you to be on a potassium supplement. You did discuss that you are having some paranoia and difficulty sleeping. He said you did not want any type of mental health help at this time. If you change your mind you can either call your regular doctor or you can come back to the ER, they would have to do blood work and set you up with a mental health screener. If you would like to do this, the purpose typically would be to be admitted to a psychiatric hospital. Work/School Note: Work Release Form Date Seen in the Emergency Department: Oct 30, 2021 Return to Work: Oct 31, 2021 Restrictions: No Restrictions UDAY LANDRY MD Oct 30, 2021 15:47
[2021-10-30 16:05] LABS: BASOPHILS % (AUTO) 0 % (0-10); EOSINOPHILS # (AUTO) 0.1 10^3/uL (0.0-0.3); EOSINOPHILS % (AUTO) 2 % (0-10); HEMATOCRIT 41 % (35-52); HEMOGLOBIN 14.3 g/dL (11.5-16.0); LYMPHOCYTES # (AUTO) 2.7 X 10^3 (1.0-4.0); LYMPHOCYTES % (AUTO) 36 % (12-44); MEAN CORPUSCULAR HEMOGLOBIN 31 pg (25-34); MEAN CORPUSCULAR HGB CONC 35 g/dL (32-36); MEAN CORPUSCULAR VOLUME 89 fL (80-99); MEAN PLATELET VOLUME 10.4 fL (9.0-12.2); MONOCYTES # (AUTO) 0.6 X 10^3 (0.0-1.0); MONOCYTES % (AUTO) 8 % (0-12); NEUTROPHILS % (AUTO) 53 % (42-75); PLATELET COUNT 185 10^3/uL (130-400); WHITE BLOOD COUNT 7.5 10^3/uL (4.3-11.0)
[2021-10-30 16:13] LABS: POTASSIUM 3.8 MMOL/L (3.6-5.0)
[2021-10-30 16:14] LABS: CALCIUM 9.5 MG/DL (8.5-10.1)
[2021-10-30 16:19] LABS: CREATININE SERUM 0.68 MG/DL (0.60-1.30)
[2021-10-30 16:21] LABS: MAGNESIUM 1.9 MG/DL (1.6-2.4)
[2021-10-30 16:30] VITALS: BP 178/108
== END 2021-10-30 16:30 | disposition home or self-care (01) ==
LOC: EDUNIT# 14:42 → ER 14:44
DX: F22 Delusional disorders (principal); E87.6 Hypokalemia; F17.200 Nicotine dependence, unspecified, uncomplicated; Z01.89 Encounter for other specified special examinations
CPT/HCPCS: 36415; 80048; 83735; 85025; 93005